=== PATIENT | female | born 1950 | race Caucasian/White ===

== ENCOUNTER 2018-09-02 12:28 | Emergency (ER) | payer MEDICARE, OTHER ==
[2018-09-02] MEDS ORDERED: Sodium Chloride 0.9% 10 ML Syringe FLUSH PRN (12:58)
[2018-09-02] MEDS ORDERED: Sodium Chloride 0.9% 1,000 ML IV ONE (12:59)
--- NOTE | 2018-09-02 13:06 | EDM.PDOC ---
ED HPI GENERAL MEDICAL PROBLEM - General Chief Complaint: Gastrointestinal Problem Stated Complaint: BLEEDING, LIGHT HEADED Time Seen by Provider: 09/02/18 12:40 Source of Information: Reports: Patient History Limitations: Reports: No Limitations - History of Present Illness INITIAL COMMENTS - FREE TEXT/NARRATIVE: 67-year-old female who had a colonoscopy done at [facility] in [place] yesterday at approximately 2 PM. She reports she had 5 polyps removed and there were no immediate problems. She has been doing well at home until this morning at approximately 9:30-10 AM when she had a bowel movement with about a cup full of burgundy colored blood with clots. She has had 1 other episode of bleeding with more blood and clots mixed with stool just prior to coming in to the emergency department and at that time she felt very weak and lightheaded and had a near syncopal episode. She actually had some cold sweats associated with this as well and the noted that she was very pale appearing at this time. She presents to the emergency department via private vehicle an initial blood pressure was in the 90 systolic range. She is awake and alert and able to give an appropriate history. She had some mild cramping associated with the second bowel movement that she rated as a 4/10 but she has had no pain since then. No chest pain. She has no shortness of breath. No nausea or vomiting. No fevers or chills. There are no other associated signs or symptoms. There are no other modifying factors. 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) (Nothing) - Related Data Allergies Allergy/AdvReac Type Severity Reaction Status Date / Time No Known Allergies Allergy Verified 09/02/18 12:46 Home Meds: Home Meds Aspirin 81 mg PO DAILY 09/02/18 [History] atorvaSTATin [Lipitor] 10 mg PO DAILY 09/02/18 [History] glipiZIDE [Glucotrol] 5 mg PO DAILY 09/02/18 [History] metFORMIN HCl [Metformin HCl ER] 500 mg PO BID 09/02/18 [History] Past Medical History Cardiovascular History: Reports: High Cholesterol Endocrine/Metabolic History: Reports: Diabetes, Type II (On metformin) - Past Surgical History HEENT Surgical History: Reports: Oral Surgery ([place] teeth extraction) GI Surgical History: Reports: Colonoscopy Female Surgical History: Reports: Hysterectomy Musculoskeletal Surgical History: Reports: Carpal Tunnel (Left-sided), Knee Replacement (Bilateral) Social & Family History - Tobacco Use Smoking Status *Q: Never Smoker - Alcohol Use Alcohol Use History: No - Living Situation & Occupation Living situation: Reports: (Here with her ) Occupation: Retired Social History Comment: Lives in her own home with her . ED ROS GENERAL - Review of Systems Review Of Systems: See Below Constitutional: Reports: Weakness, Diaphoresis (With episode) HEENT: Reports: Other (Drymouthed) Respiratory: Reports: No Symptoms Cardiovascular: Reports: Lightheadedness. Denies: Chest Pain Endocrine: Reports: Other (Has been eating and drinking normally) GI/Abdominal: Reports: Bloody Stool (With clots, 2 today). Denies: Nausea, Vomiting : Reports: No Symptoms Musculoskeletal: Reports: No Symptoms Skin: Reports: No Symptoms Neurological: Reports: Dizziness (With standing) Hematologic/Lymphatic: Reports: No Symptoms Immunologic: Reports: No Symptoms ED EXAM, GENERAL - Physical Exam Exam: See Below Exam Limited By: No Limitations General Appearance: Alert, Mild Distress, Obese Eye Exam: Bilateral Eye: EOMI, Normal Inspection, PERRL Ears: Normal External Exam, Hearing Grossly Normal Nose: Normal Inspection, Normal Mucosa, No Blood Throat/Mouth: Normal Voice, No Airway Compromise, Other (Dry mucous membranes) Head: Atraumatic, Normocephalic Neck: Normal Inspection, Supple, Non-Tender, Full Range of Motion Respiratory/Chest: No Respiratory Distress, Lungs Clear, Normal Breath Sounds, No Accessory Muscle Use, Chest Non-Tender Cardiovascular: Normal Peripheral Pulses, Regular Rate, Rhythm, No JVD Peripheral Pulses: 2+: Radial (L), Radial (R), Dorsalis Pedis (L), Dorsalis Pedis (R) GI/Abdominal: Normal Bowel Sounds, Soft, Non-Tender, No Distention, No Mass Back Exam: Normal Inspection Extremities: Normal Inspection, Normal Range of Motion, No Pedal Edema, Normal Capillary Refill Neurological: Alert, Oriented, CN II-XII Intact, Normal Cognition, No Motor/ Sensory Deficits Psychiatric: Normal Affect Skin Exam: Warm, Dry, Intact, Normal Color, No Rash Lymphatic: No Adenopathy EKG INTERPRETATION EKG Date: 09/02/18 Time: 13:36 Rhythm: NSR Rate (Beats/Min): 70 [place]: LAD-Left [place] Deviation (Mild) P-Wave: Present QRS: Normal ST-T: Other (Evidence of an old inferior [place]) QT: Prolonged EKG Interpretation Comments: Normal sinus rhythm with a rate of 70. There is a slight left axis. She has evidence of an old inferior [place]. There is no acute current of injury or ischemia. There is a slightly prolonged QTC. Course - Vital Signs Last Recorded V/S: Last Vital Signs Temp 36.2 C 09/02/18 12:30 Pulse 70 09/02/18 13:45 Resp 18 09/02/18 13:45 BP 114/59 L 09/02/18 13:45 Pulse Ox 100 09/02/18 13:45 - Orders/Labs/Meds Orders: Active Orders 24 hr Category Date Time Status EKG Documentation Completion [RC] ASDIRECTED Care 09/02/18 13:13 Active PATIENT RETYPE [BBK] Stat Lab 09/02/18 13:10 Results TYPE AND SCREEN [BBK] Stat Lab 09/02/18 13:10 Results Sodium Chloride 0.9% [Saline Flush] Med 09/02/18 12:58 Active 10 ml FLUSH ASDIRECTED PRN Peripheral IV Insertion Adult [OM.PC] Routine Oth 09/02/18 12:58 Ordered EKG 12 Lead [EK] Routine Ther 09/02/18 13:13 Ordered Medication Orders Sodium Chloride (Saline Flush) 10 ml FLUSH ASDIRECTED PRN PRN Reason: Keep Vein Open Labs: Laboratory Tests 09/02/18 09/02/18 09/02/18 Range/Units 13:10 13:10 13:10 WBC 9.3 (4.5-12.0) X10-3/uL RBC 4.26 (3.23-5.20) x10(6)uL Hgb 11.8 (11.5-15.5) g/dL Hct 34.4 (30.0-51.3) % MCV 80.8 (80-96) fL MCH 27.7 (27.7-33.6) pg MCHC 34.3 (32.2-35.4) g/dL RDW 13.8 (11.5-15.5) % Plt Count 229 (125-369) X10(3)uL MPV 7.8 (7.4-10.4) fL Neut % (Auto) 77.5 (46-82) % Lymph % (Auto) 16.8 (13-37) % [place] % (Auto) 4.4 (4-12) % Eos % (Auto) 1 (1.0-5.0) % Baso % (Auto) 1 (0-2) % Neut # (Auto) 7.2 (1.6-8.3) # Lymph # (Auto) 1.6 (0.6-5.0) # [place] # (Auto) 0.4 (0.0-1.3) # Eos # (Auto) 0.1 (0.0-0.8) # Baso # (Auto) 0.0 (0.0-0.2) # PT 9.9 (8.7-11.1) INR 1.02 (0.89-1.13) Sodium 143 (135-145) mmol/L Potassium 4.0 (3.5-5.3) mmol/L Chloride 105 (100-110) mmol/L Carbon Dioxide 27 (21-32) mmol/L BUN 11 (7-18) mg/dL Creatinine 0.8 (0.55-1.02) mg/dL Est Cr Clr Drug Dosing TNP Estimated GFR (MDRD) > 60 (>60) BUN/Creatinine Ratio 13.8 (9-20) Glucose 209 H (80-116) mg/dL Calcium 8.6 (8.6-10.2) mg/dL Total Bilirubin 0.5 (0.1-1.3) mg/dL AST 15 (5-25) IU/L ALT 22 (12-36) U/L Alkaline Phosphatase 76 (56-112) IU/L Total Protein 5.9 L (6.0-8.0) g/dL Albumin 3.2 (3.2-4.6) g/dL Globulin 2.7 g/dL Albumin/Globulin Ratio 1.2 Blood Type Gel Antibody Screen 09/02/18 Range/Units 13:10 WBC (4.5-12.0) X10-3/uL RBC (3.23-5.20) x10(6)uL Hgb (11.5-15.5) g/dL Hct (30.0-51.3) % MCV (80-96) fL MCH (27.7-33.6) pg MCHC (32.2-35.4) g/dL RDW (11.5-15.5) % Plt Count (125-369) X10(3)uL MPV (7.4-10.4) fL Neut % (Auto) (46-82) % Lymph % (Auto) (13-37) % [place] % (Auto) (4-12) % Eos % (Auto) (1.0-5.0) % Baso % (Auto) (0-2) % Neut # (Auto) (1.6-8.3) # Lymph # (Auto) (0.6-5.0) # [place] # (Auto) (0.0-1.3) # Eos # (Auto) (0.0-0.8) # Baso # (Auto) (0.0-0.2) # PT (8.7-11.1) INR (0.89-1.13) Sodium (135-145) mmol/L Potassium (3.5-5.3) mmol/L Chloride (100-110) mmol/L Carbon Dioxide (21-32) mmol/L BUN (7-18) mg/dL Creatinine (0.55-1.02) mg/dL Est Cr Clr Drug Dosing Estimated GFR (MDRD) (>60) BUN/Creatinine Ratio (9-20) Glucose (80-116) mg/dL Calcium (8.6-10.2) mg/dL Total Bilirubin (0.1-1.3) mg/dL AST (5-25) IU/L ALT (12-36) U/L Alkaline Phosphatase (56-112) IU/L Total Protein (6.0-8.0) g/dL Albumin (3.2-4.6) g/dL Globulin g/dL Albumin/Globulin Ratio Blood Type A POSITIVE Gel Antibody Screen Negative Meds: Medications Generic Name Dose Route Start Last Admin Trade Name Jamarcus PRN Reason Stop Dose Admin Sodium Chloride 10 ml 09/02/18 12:58 Saline Flush FLUSH ASDIRECTED PRN Keep Vein Open Discontinued Medications Generic Name Dose Route Start Last Admin Trade Name Frevibha PRN Reason Stop Dose Admin Sodium Chloride 1,000 mls @ 999 mls/hr 09/02/18 12:59 09/02/18 14:10 Normal Saline IV 09/02/18 13:59 150 mls/hr .BOLUS ONE Infusion - Re-Assessments/Exams Free Text/Narrative Re-Assessment/Exam: 09/02/18 13:50: Patient has received 500 mL bolus of normal saline. Repeat pulse is 77 and repeat blood pressure is 114/59. She feels improved. She has had no further bloody stools and has no abdominal discomfort. However, with the bleeding per rectum status post colonoscopy and her hypotension with near- syncope prior to arrival, she will need admission for continued close monitoring and serial hemoglobins. She will need to be in a facility where a GI specialist and interventional radiology is available (they are not available at [facility]). Therefore, she will need to be transferred to [facility] in [place]. I have discussed this with the patient and her and they are in agreement with this plan. I will call [facility] in [place]. 09/02/18 14:37: I discussed patient's case with Dr. Sweeney, hospitalist at [facility] in [place], he has agreed to accept the patient in transfer. We will continue close monitoring of the patient. We will continue IV fluid administration with normal saline and 150 mL per hour. The patient will be kept nothing by mouth. The patient will be transferred via ambulance to [facility] in [place] for direct admission. Departure - Departure Time of Disposition: 14:40 Disposition: DC/Tfer to Acute Hospital 02 Condition: Fair Clinical Impression: Acute lower gastrointestinal bleeding, Colonoscopy causing post-procedural bleeding Hypotension Qualifiers: Hypotension type: hypotension due to hypovolemia Qualified Code(s): I95.89 - Other hypotension; E86.1 - Hypovolemia - Discharge Information Referrals: Tate Engle MD [Primary Care Provider] - Forms: ED Department Discharge - My Orders Last 24 Hours: My Active Orders 09/02/18 12:58 Sodium Chloride 0.9% [Saline Flush] 10 ml FLUSH ASDIRECTED PRN Peripheral IV Insertion Adult [OM.PC] Routine 09/02/18 13:10 PATIENT RETYPE [BBK] Stat TYPE AND SCREEN [BBK] Stat 09/02/18 13:13 EKG Documentation Completion [RC] ASDIRECTED EKG 12 Lead [EK] Routine - Assessment/Plan Last 24 Hours: My Active Orders 09/02/18 12:58 Sodium Chloride 0.9% [Saline Flush] 10 ml FLUSH ASDIRECTED PRN Peripheral IV Insertion Adult [OM.PC] Routine 09/02/18 13:10 PATIENT RETYPE [BBK] Stat TYPE AND SCREEN [BBK] Stat 09/02/18 13:13 EKG Documentation Completion [RC] ASDIRECTED EKG 12 Lead [EK] Routine
== END 2018-09-02 15:15 ==
LOC: FB.ED 12:28
DX: K91.840 Postprocedural hemorrhage of a digestive system organ or structure following a digestive system procedure (principal); I95.89 Other hypotension; E86.1 Hypovolemia; E78.00 Pure hypercholesterolemia, unspecified; E11.9 Type 2 diabetes mellitus without complications; Z79.82 Long term (current) use of aspirin; Z79.84 Long term (current) use of oral hypoglycemic drugs; Z79.899 Other long term (current) drug therapy
CPT/HCPCS: 36415; 80053; 85025; 85610; 86850; 86900; 86901; 93005; 96360; 96361; 99285; J7030

== ENCOUNTER 2024-06-18 06:49 | Day surgery (SDC) | payer MEDICARE, OTHER ==
[2024-06-18] MEDS ORDERED: Propofol 200 MG/20 ML SDV IV ONE (06:50)
[2024-06-18] MEDS ORDERED: Sodium Chloride 0.9% 10 ML Syringe FLUSH PRN (07:00)
[2024-06-18] MEDS: Lactated Ringers 1,000 ML IV SCH (08:03)
[2024-06-18] MEDS: Simethicone Drops 40 MG/0.6 ML 30 ML Bottle ONE (08:24)
== END 2024-06-18 10:07 | disposition home or self-care (01) ==
LOC: FB.SDS 06:49
PROVIDERS: ATTEND Surgery
DX: Z12.11 Encounter for screening for malignant neoplasm of colon (principal); D12.6 Benign neoplasm of colon, unspecified; D12.8 Benign neoplasm of rectum; E11.9 Type 2 diabetes mellitus without complications; E66.9 Obesity, unspecified; Z80.0 Family history of malignant neoplasm of digestive organs; Z79.899 Other long term (current) drug therapy; Z79.84 Long term (current) use of oral hypoglycemic drugs; Z79.82 Long term (current) use of aspirin; Z68.36 Body mass index [BMI] 36.0-36.9, adult; Z86.0101 Personal history of adenomatous and serrated colon polyps
CPT/HCPCS: 00811; 88305; 99100; A9270-GY; J2704; J7120